=== PATIENT | female | born 1955 | race Caucasian/White ===

== ENCOUNTER → 2019-12-09 | Outpatient (CLI) | payer OTHER ==
[~2019-12-09] MED LIST: ALBU8.5H INH; ASPI81TA26 PO; ESSE250T PO; FLUO20CA22 PO; FLUT1BLS5 INH; LOSA100T50 PO; METO1TAB7 PO; MICR1TAB5 PO; MONT10TA4 PO; NOVO1INJ4 SC; NOVOINJ14 SC; TIZA4TAB4 PO; ZOCO80TA PO
[2019-12-09 14:02] LABS: FREE T4 0.88 NG/DL (0.76-1.46); IMMUNOGLOBULIN A 69.5 MG/DL (70-400); THYROID STIMULATING HORMONE 1.42 uIU/ML (0.358-3.740)
== END ==
LOC: M LAB 12:28
PROVIDERS: ATTEND Internal Medicine Gastroenterology
DX: R19.7 Diarrhea, unspecified (principal)

== ENCOUNTER → 2019-12-10 | Outpatient (REF) | payer OTHER ==
[2019-12-18 16:08] LABS: CALPROTECTIN STOOL 245 ug/g (0-120); PANCREATIC ELASTASE STOOL 247 (>200)
== END ==
LOC: M LAB REF 11:35
PROVIDERS: ATTEND Internal Medicine Gastroenterology
DX: R19.7 Diarrhea, unspecified (principal)

== ENCOUNTER → 2019-12-15 | Outpatient (CLI) | payer OTHER ==
--- NOTE | 2019-12-20 10:36 | REP ---
ABDOMEN, SITZ MARKER STUDY: 12/20/2019. Clinical history: Diarrhea, unspecified. The patient swallowed sitz marker on 12/14. Findings: Two views are provided. There are two rings overlying the inferior aspect of the right iliac bone at the SI joint. Another ring about the right iliac crest and one in the left lower quadrant in the pelvis, presumably within the sigmoid. There are no other residual markers. Impression: 1. There are four Sitz markers remaining in the colon, one in the right lower quadrant presumably in the sigmoid and two in the right mid and upper abdomen, most likely transverse colon. Electronically Signed by Leo Najera MD 12/20/2019 10:27 A
== END ==
LOC: M RAD 10:26
PROVIDERS: ATTEND Internal Medicine Gastroenterology
DX: R19.7 Diarrhea, unspecified (principal)

== ENCOUNTER → 2020-01-14 | Outpatient (REF) | payer OTHER | LOC: M LAB REF 08:16 | PROVIDERS: ATTEND Dermatology | DX: R21 Rash and other nonspecific skin eruption (principal) ==

== ENCOUNTER → 2020-03-06 | Outpatient (CLI) | payer OTHER | LOC: M LABSMTC 10:08 | PROVIDERS: ATTEND Anesthesiology | DX: Z01.812 Encounter for preprocedural laboratory examination (principal); Z20.828 Contact with and (suspected) exposure to other viral communicable diseases | CPT/HCPCS: C9803; U0003 ==

== ENCOUNTER 2020-03-11 12:11 | Day surgery (SDC) | payer OTHER ==
[~2020-03-11] VITALS: Ht 160 cm; Wt 87.5 kg
[~2020-03-11 12:11] MED LIST changes: +LIDOCAINE 2% 100MG/5ML SDV (FOR ANES.) As Ordered ONE; +NS 1,000 ML IV ONE; +propofoL 200 MG/20 ML VIAL As Ordered ONE
--- NOTE | 2020-03-11 13:18 | ROOR ---
Patient Name: Mary Alice Quinonez Procedure Date: 03/11/2020 12:55 PM Date of : 1955 Age: 64 Room: [facility] Gender: Female Note Status: Finalized Procedure: Upper GI endoscopy Indications: Functional Dyspepsia, Nausea Providers: Phu VALDEZ MD Referring MD: DOMINICK EDWARDS MD Requesting Provider: Medicines: Monitored Anesthesia Care Complications: No immediate complications. Procedure: Pre-Anesthesia Assessment: - The heart rate, respiratory rate, oxygen saturations, blood pressure, adequacy of pulmonary ventilation, and response to care were monitored throughout the procedure. The Endoscope was introduced through the mouth, and advanced to the second part of duodenum. The upper GI endoscopy was accomplished without difficulty. The patient tolerated the procedure well. Findings: The examined esophagus was normal. A few 4 mm mucosal papules (nodules) were found in the gastric fundus. Biopsies were taken with a cold forceps for histology. The exam of the stomach was otherwise normal. The examined duodenum was normal. Biopsies for histology were taken with a cold forceps for evaluation of celiac disease. Impression: - Normal esophagus. - A few diminuitive mucosal nodularities/flat polyps found in the stomach. Biopsied. - Otherwise normal stomach. - Normal examined duodenum. Biopsied. Recommendation: - Continue present medications. - Telephone endoscopist for pathology results in 2 weeks. - Observe patient's clinical course. Phu Valdez MD Phu VALDEZ MD 03/11/2020 1:17:28 PM Electronically signed by Phu VALDEZ MD Number of Addenda: 0 Note Initiated On: 03/11/2020 12:55 PM Estimated Blood Loss: Estimated blood loss: none.
[2020-03-11] MEDS ORDERED: propofoL 200 MG/20 ML VIAL As Ordered ONE (13:20)
--- NOTE | 2020-03-11 13:53 | ROOR ---
Patient Name: Mary Alice Quinonez Procedure Date: 03/11/2020 12:56 PM Date of : 1955 Age: 64 Room: [facility] Gender: Female Note Status: Finalized Procedure: Colonoscopy Indications: Clinically significant diarrhea of unexplained origin, Exclusion of colitis, Constipation Providers: Phu VALDEZ MD Referring MD: DOMINICK EDWARDS MD Requesting Provider: Medicines: Monitored Anesthesia Care Complications: No immediate complications. Procedure: Pre-Anesthesia Assessment: - The heart rate, respiratory rate, oxygen saturations, blood pressure, adequacy of pulmonary ventilation, and response to care were monitored throughout the procedure. The Colonoscope was introduced through the anus and advanced to 10 cm into the ileum. The colonoscopy was performed without difficulty. The patient tolerated the procedure well. The quality of the bowel preparation was fair. Required extensive lavage. Findings: The perianal exam findings include a perianal rash. Biopsies were taken with a cold forceps for histology. Internal hemorrhoids were found during retroflexion. The hemorrhoids were small. Two sessile polyps were found in the proximal sigmoid colon. The polyps were 4 to 5 mm in size. These polyps were removed with a cold snare. Resection and retrieval were complete. Mild sigmoid diverticulosis and small internal hemorrhoids. The exam was otherwise normal throughout the examined colon. The terminal ileum appeared normal. Biopsies for histology were taken with a cold forceps from the entire colon for evaluation of microscopic colitis. Impression: - Preparation of the colon was fair. - Fairly severe perianal rash found on perianal exam. Biopsied fungal vs inflammatory. - Two 4 to 5 mm polyps in the proximal sigmoid colon, removed with a cold snare. Resected and retrieved. - Mild sigmoid diverticulosis and small internal hemorrhoids. - The colon is otherwise normal. - The examined portion of the ileum was normal. - Biopsies were taken with a cold forceps from the entire colon for evaluation of microscopic colitis. Recommendation: - Await pathology results. - Start Lotrisone cream or ointment to perianal rash--script sent to your pharmacy. - (the script was sent to your pharmacy on file) - Telephone endoscopist for pathology results in 2 weeks. - Your sitzmark test showed persistent markers after 5 days. this is suggestive of slow transit. (constipation/impaction causing overflow diarrhea). I would recommend you start daily dose of Miralax. - (the script was sent to your pharmacy on file) Phu Valdez MD Phu VALDEZ MD 03/11/2020 1:52:46 PM Electronically signed by Phu VALDEZ MD Number of Addenda: 0 Note Initiated On: 03/11/2020 12:56 PM Estimated Blood Loss: Estimated blood loss: none.
[2020-03-11] MEDS ORDERED: GLUCAGON INJ 1MG VIAL As Ordered ONE (13:55)
[2020-03-11 14:18] VITALS: BP 107/63
== END 2020-03-11 14:19 | disposition home or self-care (01) ==
LOC: M OPP 12:11
PROVIDERS: ATTEND Internal Medicine Gastroenterology
DX: D12.5 Benign neoplasm of sigmoid colon (principal); K64.8 Other hemorrhoids; R21 Rash and other nonspecific skin eruption; R19.7 Diarrhea, unspecified; K59.00 Constipation, unspecified; K31.89 Other diseases of stomach and duodenum; K30 Functional dyspepsia; R11.0 Nausea; K57.30 Diverticulosis of large intestine without perforation or abscess without bleeding; J44.9 Chronic obstructive pulmonary disease, unspecified; G47.30 Sleep apnea, unspecified; E11.9 Type 2 diabetes mellitus without complications; F17.210 Nicotine dependence, cigarettes, uncomplicated; Z79.4 Long term (current) use of insulin; Z79.82 Long term (current) use of aspirin; Z79.899 Other long term (current) drug therapy; Z88.8 Allergy status to other drugs, medicaments and biological substances
CPT/HCPCS: 43239; 45380; 45385; 88305; J1610

== ENCOUNTER → 2020-10-14 | Outpatient (REF) | payer OTHER ==
[~2020-10-14] MED LIST changes: -LIDOCAINE 2% 100MG/5ML SDV (FOR ANES.) As Ordered ONE; +MONT10TA10 PO; -MONT10TA4 PO; -NS 1,000 ML IV ONE; -propofoL 200 MG/20 ML VIAL As Ordered ONE
== END ==
LOC: M LAB REF 18:19
PROVIDERS: ATTEND Internal Medicine Endocrinology, Diabetes & Metabolism
DX: E04.2 Nontoxic multinodular goiter (principal)

== ENCOUNTER → 2020-11-17 | Outpatient (CLI) | payer OTHER ==
--- NOTE | 2020-11-17 11:17 | REP ---
INDICATION: ABN FINDINGS OF LUNG FIELD COMPARISON: 03/12/2020 TECHNIQUE: Axial noncontrast images from the thoracic inlet to the upper abdomen with coronal and sagittal reformations. This CT examination was performed using the following dose reduction techniques: Automated exposure control, adjustment of mA and/or kv according to the patient's size, and use of iterative reconstruction technique. FINDINGS: Lung mariano again demonstrate mild chronic emphysematous changes, minimal scattered scarring, and stable ground-glass opacity and 5 mm nodule in the right lower lobe. No acute consolidation, new nodule or mass lesion. No effusion. No pneumothorax. Tracheobronchial tree is patent. IMPRESSION: Lung-RADS category 2. Stable findings. Management recommendations include annual low-dose CT surveillance. <Electronically signed by Vlad Maher > 11/17/20 111
== END ==
LOC: M RAD 10:04
PROVIDERS: ATTEND Internal Medicine Pulmonary Disease
DX: R91.8 Other nonspecific abnormal finding of lung field (principal)

== ENCOUNTER → 2021-06-07 | Outpatient (CLI) | payer OTHER ==
[~2021-06-07] MED LIST changes: +LOSA100T45 PO; -LOSA100T50 PO; -MONT10TA10 PO; +MONT10TA97 PO; +TIZA10TA PO; -TIZA4TAB4 PO
== END ==
LOC: M RAD 10:32
PROVIDERS: ATTEND Internal Medicine Pulmonary Disease
DX: R91.8 Other nonspecific abnormal finding of lung field (principal); Z87.891 Personal history of nicotine dependence

== ENCOUNTER → 2021-08-02 | Outpatient (CLI) | payer OTHER | LOC: M RAD 09:51 | PROVIDERS: ATTEND Family Medicine | DX: M89.9 Disorder of bone, unspecified (principal) | CPT/HCPCS: 78306; A9503 ==

== ENCOUNTER → 2021-12-15 | Outpatient (CLI) | payer OTHER | LOC: M RAD 12:38 | PROVIDERS: ATTEND Internal Medicine Pulmonary Disease | DX: R91.8 Other nonspecific abnormal finding of lung field (principal) ==